=== PATIENT | male | born 1955 | race Caucasian/White ===

== ENCOUNTER → 2018-01-05 | Outpatient (CLI) | payer OTHER ==
[~2018-01-05] MED LIST: SERT50TA PO; SIMV40TA2 PO; XRL10 PO
[2018-01-05 14:09] LABS: BASO % 0.7 %; BASO ABS # 0.04 K/uL (0-0.2); EOS % 3.1 %; EOS ABS # 0.18 K/uL (0-0.5); HEMATOCRIT 44.4 % (42-52); HEMOGLOBIN 15.1 g/dL (14.0-18.0); LYMPH % 29.1 %; LYMPH ABS # 1.69 K/uL (1.2-3.4); MEAN CELL VOLUME 94.3 fL (80-100); MEAN CORPUSCULAR HEMOGLOBIN 32.1 pg (25-34); MEAN PLATELET VOLUME 9.6 fL (7.4-10.4); MONO % 6.7 %; MONO ABS # 0.39 K/uL (0.11-0.59); NEUT % 60.4 %; NEUT ABS # 3.51 K/uL (1.4-6.5); PLATELET COUNT 259 K/uL (130-400); RED CELL DISTRIBUTION WIDTH CV 12.9 % (11.5-14.5); RED CELL DISTRIBUTION WIDTH SD 44.8 fL (36.4-46.3); WHITE BLOOD COUNT 5.81 K/uL (4.8-10.8)
[2018-01-05 14:21] LABS: ALBUMIN 3.7 gm/dl (3.4-5.0); ALT/SGPT 39 U/L (12-78); BLOOD UREA NITROGEN 17 mg/dl (7-18); CARBON DIOXIDE 26 mmol/L (21-32); CHOLESTEROL 177 mg/dl (0-200); CREATININE 1.16 mg/dl (0.60-1.40); GLUCOSE 104 mg/dl (70-99); POTASSIUM 4.2 mmol/L (3.5-5.1); SODIUM 139 mmol/L (136-145)
[2018-01-05 14:37] LABS: ALKALINE PHOSPHATASE 68 U/L (45-117); AST/SGOT 29 U/L (15-37); LDL CHOLESTEROL CALCULATED 99 mg/dl; TOTAL PROTEIN 7.7 gm/dl (6.4-8.2)
== END | disposition home or self-care (01) ==
LOC: C.LABBC 11:52
PROVIDERS: ATTEND Family Medicine Adult Medicine
DX: K58.9 Irritable bowel syndrome, unspecified (principal); M19.90 Unspecified osteoarthritis, unspecified site; N40.0 Benign prostatic hyperplasia without lower urinary tract symptoms; R53.83 Other fatigue; E78.5 Hyperlipidemia, unspecified; D64.9 Anemia, unspecified

== ENCOUNTER → 2018-01-13 | Outpatient (CLI) | payer OTHER ==
--- NOTE | 2018-01-13 08:05 | DIAGNOSTIC IMAGING REPORT ---
SINUSES-MAXILLOFACIAL W/O CT DOSE: 241.10 mGycm HISTORY: Sinusitis ALLERGIC RHINITIS, DEVIATED NASAL SEPTUM TECHNIQUE: Multiaxial CT images of the paranasal sinuses were performed and reformatted in the coronal plane without the use of contrast. A dose lowering technique was utilized adhering to the principles of ALARA. COMPARISON: 09/05/2015 FINDINGS: Moderate mucosal thickening of the frontal sinuses. Significant thickening of the ethmoid air cells. Minimal mucosal thickening of the maxillary sinuses. Soft tissue occlusion right ostiomeatal unit. Moderate narrowing of the left ostiomeatal unit. Minimal mucosal thickening of the sphenoid air cells. Osseous structures are intact. There are no bony destructive or erosive changes. The mastoid air cells are clear. IMPRESSION: 1. Significant mucosal thickening of the ethmoid and to a lesser extent frontal sinuses. 2. Minimal mucosal thickening of the maxillary and sphenoid air cells. 3. Soft tissue occlusion right ostiomeatal unit, with moderate narrowing of the left ostiomeatal unit. The above report was generated using voice recognition software. It may contain grammatical, syntax or spelling errors. Electronically signed by: Pérez Cary M.D. 01/13/2018 8:03 AM Dictated Date/Time: 01/13/2018 8:01 AM
== END | disposition home or self-care (01) ==
LOC: C.CTS 07:34
PROVIDERS: ATTEND Family Medicine Adult Medicine
DX: J34.2 Deviated nasal septum (principal); J30.9 Allergic rhinitis, unspecified

== ENCOUNTER 2020-05-06 09:36 | Inpatient (IN) ==
--- NOTE | 2020-04-09 15:53 | PAT Medication Instructions ---
Medication Instructions Date of Service April 09, 2020 Home Medications fluticasone propionate 50 mcg/actuation nasal spray,suspension 2 sprays INTNAS DAILY PRN meloxicam 7.5 mg PO DAILY PRN montelukast 10 mg PO QAM sertraline 50 mg PO PM simvastatin 40 mg PO PM ASK your surgeon for instructions meloxicam 7.5 mg PO DAILY PRN DO NOT take the morning of surgery montelukast 10 mg PO QAM Take morning of surgery OTHERWISE NOTHING TO EAT OR DRINK AFTER MIDNIGHT: fluticasone propionate 50 mcg/actuation nasal spray,suspension 2 sprays INTNAS DAILY PRN (if needed) Take evening before surgery sertraline 50 mg PO PM simvastatin 40 mg PO PM Other Notes If you have any questions please call us at [phone] or [phone] or [phone] or [phone]
--- NOTE | 2020-04-11 12:11 | Anesthesiology Consultation ---
Date of Service April 11, 2020 Assessment & Plan (1) Encounter for pre-operative examination: Chart Review Chart Review: Pending: Refer to Additional Notes / Consult section (pending surgeon ordered PCP clearance scheduled 04/15) and Patient seen in Pre Admission Testing Awaiting surgeon ordered PCP clearance scheduled 04/15 Per PAT appt 04/11/20, traveled to [facility] >2 weeks ago- wears mask and social distances. Educated patient to follow up with surgeon's office regarding Covid testing. Educated on importance of self quarantining, social distancing and wearing mask in public both for the patient and household contacts. Teaching & Discussion Pre-Anesthesia Teaching/Discussion Notes: Instructed NPO after midnight before surgery,except medications with 15 cc of water. Medication instructions provided according to the PAT guidelines. History Surgery Operation Date: 05/07/20 07:45 Proposed Procedures p Right Total Hip Arthroplasty Anterior - Jonathan Mclean DO Height/Weight Height: 5 ft 10 in Weight: 86 kg Allergies Allergy/AdvReac Type Severity Reaction Status Date / Time cat dander Allergy Mild Sneezing Verified 04/04/20 08:05 dog dander Allergy Mild Sneezing Verified 04/04/20 08:05 indoor allergies Allergy Mild runny Uncoded 10/05/19 12:47 nose, sneezing, had allergy testing done Medications Home Medications Medication Instructions Recorded Confirmed Last Taken fluticasone propionate 50 2 sprays INTNAS DAILY PRN ml 10/01/19 04/04/20 Unknown mcg/actuation nasal spray,suspension meloxicam 7.5 mg PO DAILY PRN 04/04/20 04/04/20 Unknown montelukast 10 mg PO QAM 04/04/20 04/04/20 Unknown sertraline 50 mg PO PM 04/04/20 04/04/20 Unknown simvastatin 40 mg PO PM 04/04/20 04/04/20 Unknown Past Medical History Medical History Anxiety Hyperlipidemia Osteoarthritis Exercise / Class Metabolic Activity II 4-5 Yardwork/Stairs/Walk up hill (one flight of stairs - no chest pain or SOB ) Past Family History Family History Father Heart disease Hyperlipidemia Coronary heart disease Myocardial infarction Mother Irritable bowel Muscular dystrophy Son Muscular dystrophy Denies family history of Ovarian cancer Prostate cancer Breast cancer Colorectal cancer Past Surgical History Surgical History History of arthroscopy right History of colonoscopy History of endoscopic sinus surgery History of laminectomy lumbar History of left hip replacement History of tonsillectomy and adenoidectomy History of tooth extraction wisdom teeth Past Anesthesia History No Hx of Anesthesia Complications and No Family Hx of Anesthesia Complications History of PONV No Hx of PONV and No Hx of Motion Sickness Social History Smoking Status: Never smoker tobacco type: smokeless tobacco Do You Dip or Chew Tobacco: Yes (QUIT 2 WEEKS AGO USED TO BE A CAN PER 3 DAYS) Smoking End Date: 30 YRS AGO Hx Alcohol Use: Yes Alcohol type: beer alcohol intake frequency: 0-2 drinks per day Alcohol Intake Frequency Comment: 1 BEER PER DAY Hx Substance Use: No substance use type: does not use Review of Systems Occ reflux- eventually improved with OTC meds Patient denies chest pain, shortness of breath, dyspnea on exertion, cough, wheezing, palpitations. No hx of seizures, stroke, ME, apnea/snoring. No hx of blood clots or blood transfusions Physical Exam Vital Signs VITALS BP 143/80 P 66 TEMP 98.4 SP02 96% RESP 16 Constitutional no acute distress ENMT Mouth: no TMJ clicking Thyromental Distance: > or= 3.5 Finger Breadths Mallampati Class: II Denies any missing teet h Neck neck extension not limited Respiratory normal respiratory effort; no respiratory distress Auscultation: lungs clear to auscultation bilaterally; no wheezes Cardiovascular Rate/Rhythm: regular rate and regular rhythm Heart Sounds: no murmur Vessels: no carotid bruit Musculoskeletal Spine: + pain with cervical ROM (minimal) Neurologic moves all extremities Psychiatric Orientation: alert Testing Laboratory Results 04/11/20 11:25 04/11/20 11:25 PT 10.6 Seconds (9.0-12.0) 04/11/20 11:25 INR 1.0 (0.9-1.1) 04/11/20 11:25 APTT 33.2 Seconds (21.0-31.0) H 04/11/20 11:25 Hemoglobin A1c 5.7 % (4.5-5.6) H 04/11/20 11:25 Urine Color Yellow 04/11/20 11:25 Urine Appearance Clear (Clear) 04/11/20 11:25 Urine pH 5.0 (4.5-7.5) 04/11/20 11:25 Ur Specific Gary 1.024 (1.000-1.030) 04/11/20 11:25 Urine Protein Negative (Negative) 04/11/20 11:25 Urine Glucose (UA) Negative (Negative) 04/11/20 11:25 Urine Ketones Trace (Negative) H 04/11/20 11:25 Urine Nitrite Negative (Negative) 04/11/20 11:25 Ur Leukocyte Esterase Negative (Negative) 04/11/20 11:25 Urine WBC (Auto) 1-5 /hpf (0-5) 04/11/20 11:25 Urine RBC (Auto) 0-4 /hpf (0-4) 04/11/20 11:25 U Hyaline Cast (Auto) 0 /lpf (0-5) 04/11/20 11:25 U Epithel Cells (Auto) 0-5 /lpf (0-5) 04/11/20 11:25 Urine Bacteria (Auto) Negative (Negative) 04/11/20 11:25 Blood Type A Positive 04/11/20 11:25 Antibody Screen NEGATIVE 04/11/20 11:25 Electrocardiogram Date: 04/11/20 Findings: + SB @ (58) Chest X-Ray Date: 04/11/20 Findings: + NAD A 6 mm density in the right lung base is felt to represent either calcified granuloma or vascular summation.
--- NOTE | 2020-04-11 13:00 | XRay Report ---
XR chest Pre-admission PA/Lat CLINICAL HISTORY: Preoperative chest COMPARISON STUDY: 01/17/2013 FINDINGS: The cardiac and mediastinal contours are normal. There is no evidence of focal pulmonary co nsolidation. There is no evidence of failure. No pleural effusions are visualized.[A 6 mm density in the right lung base is felt to represent either calcified granuloma or vascular summation. IMPRESSION: No active disease in the chest. ACT 112: Negative or not required by law. Electronically signed by: Anders Uribe M.D. 04/11/2020 12:59 PM
[2020-04-11 14:30] LABS: Basophils # (auto) 0.06 K/uL (0-0.2); Basophils % (auto) 0.9 %; Eosinophils # (auto) 0.28 K/uL (0-0.5); Eosinophils % (auto) 4.3 %; Hematocrit (blood only) 39.8 % (42-52); Hemoglobin 13.5 g/dL (14.0-18.0); Immature Granulocytes # (auto) 0.01 K/uL (0.00-0.02); Immature Granulocytes % (auto) 0.2 %; Lymphocytes # (auto) 2.02 K/uL (1.2-3.4); Lymphocytes % (auto) 31.4 %; Mean Corpuscular Hemoglobin 32.1 pg (25-34); Mean Corpuscular Hgb Conc 33.9 g/dL (32-36); Mean Corpuscular Volume 94.8 fL (80-100); Mean Platelet Volume 9.9 fL (7.4-10.4); Monocytes # (auto) 0.51 K/uL (0.11-0.59); Monocytes % (auto) 7.9 %; Neutrophils # (auto) 3.56 K/uL (1.4-6.5); Neutrophils % (auto) 55.3 %; Platelet Count 245 K/uL (130-400); RDW Coefficient of Variation 13.3 % (11.5-14.5); White Blood Count 6.44 K/uL (4.8-10.8)
[2020-04-11 14:31] LABS: Partial Thromboplastin Ratio 1.2; Partial Thromboplastin Time 33.2 Seconds (21.0-31.0); Prothrombin Time 10.6 Seconds (9.0-12.0)
[2020-04-11 14:33] LABS: Estimated Average Glucose 117 mg/dl; Hemoglobin A1C 5.7 % (4.5-5.6)
[2020-04-11 14:35] LABS: Albumin Level 3.2 gm/dl (3.4-5.0); BUN Creatinine Ratio 15.2 (10-20); Calcium 8.9 mg/dl (8.5-10.1); Creatinine Clr Calc Pharmacy 76.8 ml/min; Est GFR (African American) 89.8; Est GFR (Non-African American) 77.5; Potassium 4.4 mmol/L (3.5-5.1)
[2020-04-11 14:36] LABS: Appearance Urine Clear (Clear); Bacteria Urine Automated Negative (Negative); Bilirubin Urine Negative (Negative); Blood Urine Trace (Negative); Cast Urine Automated 0 /lpf (0-5); Color Urine Yellow; Epithelial Cell Urine Auto 0-5 /lpf (0-5); Glucose Urine UA Negative (Negative); Ketones Urine Trace (Negative); Leukocyte Esterase Urine Negative (Negative); Nitrite Urine Negative (Negative); Protein Urine Negative (Negative); RBC Urine Automated 0-4 /hpf (0-4); Specific Gravity Urine 1.024 (1.000-1.030); Urobilinogen Urine Negative (Negative)
--- NOTE | 2020-04-11 19:05 | Electrocardiogram Report ---
Test Reason : Blood Pressure : / mmHG Vent. Rate : 058 BPM Atrial Rate : 058 BPM P-R Int : 158 ms QRS Dur : 090 ms QT Int : 398 ms P-R-T Axes : 058 061 053 degrees QTc Int : 390 ms Sinus bradycardia Otherwise normal ECG When compared with ECG of 17-JAN-2013 10:17, No significant change was found Confirmed by Sheldon Leonardo ([id number]) on 04/11/2020 7:05:18 PM Referred By: Jonathan Mclean Confirmed By:Stephen Leonardo
--- NOTE | 2020-05-04 21:03 | History & Physical Report ---
Date of Service May 06, 2020 Assessment & Plan (1) Degenerative joint disease of right hip: I have indicated the patient for right anterior total hip replacement. The risks, benefits and complications of surgery were explained to the patient which include but not limited to infection, acute blood loss, DVT/PE, injury to nerves, vessels, bone, soft tissue, arthrofibrosis, chronic pain, failure of the prosthesis, hip dislocation, leg length discrepancy, need for additional surgery, cardiac and pulmonary events and . The patient wished to proceed with surgery and informed consent was obtained at this time. We will plan for 81mg ASA BID post-operatively for DVT prophylaxis. Upon discharge the patient will be discharged home with home health services. Appropriate clearances by PCP were obtained. History of Present Illness Chief Complaint: Right hip pain/DJD Primary Care Provider: Kyle Loja MD The patient is a 64 year old male who presents with complaints of severe right hip pain and DJD. The patient has failed outpatient conservative treatments to this point which included NSAIDs, IA corticosteroid injection and a home exercise/walking program. The patient's pain and limited function have progressed to the point where they severely hinder their activities of daily living and they no longer tolerate exercise programs. They are requesting to proceed with total hip replacement surgery. Allergies Allergy/AdvReac Type Severity Reaction Status Date / Time cat dander Allergy Mild Sneezing Verified 05/06/20 10:39 dog dander Allergy Mild Sneezing Verified 05/06/20 10:39 indoor allergies Allergy Mild runny Uncoded 05/06/20 10:39 nose, sneezing, had allergy testing done Home Medications Home Medications Medication Instructions Recorded Confirmed Type fluticasone propionate 50 2 sprays INTNAS DAILY PRN ml 10/01/19 05/06/20 History mcg/actuation nasal spray,suspension meloxicam 7.5 mg PO DAILY PRN 04/04/20 05/06/20 History montelukast 10 mg PO QAM 04/04/20 05/06/20 History sertraline 50 mg PO PM 04/04/20 05/06/20 History simvastatin 40 mg PO PM 04/04/20 05/06/20 History sildenafil (pulm.hypertension) 20 See Rx Instructions PO ONCE #90 tab 04/15/20 05/06/20 Rx mg tablet amoxicillin 875 mg tablet 875 mg PO BID #14 tab 04/19/20 05/06/20 Rx Past Med/Surg History Medical History Anxiety Hyperlipidemia Osteoarthritis Surgical History History of arthroscopy right History of colonoscopy History of endoscopic sinus surgery (2019) History of laminectomy lumbar History of left hip replacement History of tonsillectomy and adenoidectomy History of tooth extraction wisdom teeth Family History Father Heart disease Hyperlipidemia Coronary heart disease Myocardial infarction Mother Irritable bowel Muscular dystrophy Son Muscular dystrophy Denies family history of Ovarian cancer Prostate cancer Breast cancer Colorectal cancer Social History Smoking Status: Never smoker Age Started Using Tobacco: 20; Age Quit Using Tobacco: 27; packs per day: 0.5; Smoking End Date: 30 YRS AGO; Second Hand Exposure: No; Do You Dip or Chew Tobacco: Yes (QUIT 2 WEEKS AGO USED TO BE A CAN PER 3 DAYS); Tobacco Cessation Education Requested by Patient: No Hx Alcohol Use: Yes Alcohol type: beer Hx Substance Use: No Preferred Language: Czech Communication Ability: Effective 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 Beliefs That Will Affect Care: None marital status: Current Living Situation: Spouse current occupational status: employed Other Information That Helps Us Care for You: No Feels Safe at Home: Yes Safety Concerns: Feels Safe At This Time Dental Care, Regularly: Yes Physical Activity Frequency: 3-4 Times per Week Seatbelt Use: always Sunscreen Use: Yes Review of Systems Review of Systems: All systems reviewed & are unremarkable except as noted in HPI & below Constitutional: as per Subjective / HPI Physical Exam Physical Exam: RLE NVSI +EHL/FHL/TA/GS SILT grossly, +2 DP pulse, compartments soft NT, limited painful ROM of the hip, antalgic gait Constitutional: WD/WN, vitals as above Eyes: PERRL, conjunctivae normal, anicteric sclerae ENMT: external ear and nose normal, oropharynx normal Neck: trachea midline, no thyromegaly Respiratory: normal respiratory effort, lungs clear to auscultation Cardiovascular: RRR, no murmur, no edema Gastrointestinal (Abdomen): normal bowel sounds, soft, nontender, no hepatosplenomegaly Musculoskeletal: no cyanosis or clubbing, extremities motor strength 5/5 Skin: no rashes, warm and dry Neurologic: patellar DTR's 2+ bilat, sensation intact Psychiatric: A+Ox3, euthymic affect Lymphatic: no cervical or axillary lymphadenopathy Results & Data Results & Data ([facility]) Diagnostic Findings Multiple views of the hip demonstrates severe DJD with complete loss of the joint space. +osteophytes, +sclerosis, +subchondral cysts.
[~2020-05-06 09:36] MED LIST changes: +ACETAMINOPHEN 500 MG TAB PO SCH; +BUPIVACAINE 0.5 % 5 MG/1 ML PF 10ML VIAL ONE; +CEFAZOLIN 2000MG 2,000 MG/15 ML SYR IV SCH; +CeleBREX 200 MG CAP PO SCH; +FAMOTIDINE 20 MG TAB PO SCH; +GABAPENTIN 600 MG DOSE PO SCH; +LR 500ML BOLUS, THEN 15ML/HR IV SCH; +METOCLOPRAMIDE HCL 10 MG TABLET PO SCH; +ROPIVACAINE 0.5% HCL/PF 150 MG, BUPIVACAINE 0.5% MPF 30 ML, EPINEPHrine 30MG/30ML (OR U... INSTIL SCH; -SERT50TA PO; -SIMV40TA2 PO; +TRANEXAMIC ACID 1,000 MG **IV Intra-op IV SCH; +TRANEXAMIC ACID 1,000 MG **IV Pre-op IV SCH; -XRL10 PO; +dexAMETHasone 4 MG TAB PO SCH
[2020-05-06] MEDS ORDERED: MIDAZOLAM HCL 1 MG/ML 2ML VIAL ONE (11:32)
[2020-05-06] MEDS ORDERED: PROPOFOL IV EMULSION 10 MG/ML 20 ML VIAL IV ONE ×2 (11:55→13:54)
--- NOTE | 2020-05-06 11:56 | History & Physical Bridge Note ---
Date of Service May 06, 2020 History & Physical Bridge Note I have examined the patient, reviewed the History & Physical and in the interval since the performance of the History & Physical I have noted the following changes of clinical significance: no changes noted
[2020-05-06] MEDS ORDERED: ORTHO JOINT ANESTHETIC ONE (12:01)
[2020-05-06] MEDS ORDERED: BACITRACIN INJ 50,000 UNIT VIAL ONE (12:01)
[2020-05-06] MEDS ORDERED: fentaNYL citrate 100 MCG/2 ML VIAL IV PRN (12:19)
[2020-05-06] MEDS ORDERED: ONDANSETRON INJ 2 MG/ML 2 ML VIAL IV PRN ×2 (12:19→15:41)
[2020-05-06] MEDS ORDERED: ATROPINE SULFATE 0.1 MG/ML 10ML SYR IV PRN (12:19)
[2020-05-06] MEDS ORDERED: METOCLOPRAMIDE HCL INJ 5 MG/ML 2 ML VIAL IV PRN ×2 (12:19→15:41)
[2020-05-06] MEDS ORDERED: PROMETHAZINE HCL 12.5 MG in SODIUM CHLORIDE 0.9% 50 ML IV PRN (12:19)
[2020-05-06] MEDS ORDERED: ePHEDrine sulfate 50 MG/ML AMP IV PRN (12:19)
[2020-05-06] MEDS ORDERED: HYDROmorphone INJ 2 MG/ML SYR/VIAL IV PRN (12:19)
[2020-05-06] MEDS ORDERED: ePHEDrine sulfate 50 MG/ML SYR ONE (12:51)
--- NOTE | 2020-05-06 14:08 | Post Operative Brief Note ---
Immediate Post Op Note v1 Date of Surgery May 06, 2020 Pre & Post Diagnosis Operation Date: 05/06/20 11:40 Pre-Op Diagnosis: RIGHT HIP OSTEOARTHRITIS Post-Op Diagnosis: RIGHT HIP OSTEOARTHRITIS I identified the patient and participated in the time-out.: Yes Procedure Operation Date: 05/06/20 11:40 Actual Procedures p Right Anterior Total Hip Arthroplasty(Right) - Jonathan Mclean DO Surgeon Jonathan Mclean DO Asphalt Machine Operator Gary Salmon Estimated Blood Loss 140 Findings Consistent with Post-Op Diagnosis Fluids 1500 cc LR Specimens Femoral head Anesthesia Type Spinal MAC Complications none Disposition Disposition: Recovery Room Overlapping Procedure I was present for: the critical portions of procedure. I was immediately available: during the entire case. Back up surgeon: was not required during procedure.
--- NOTE | 2020-05-06 14:10 | Operative Report ---
Post Operative Report Pre & Post Diagnosis Operation Date: 05/06/20 11:40 Pre-Op Diagnosis: RIGHT HIP OSTEOARTHRITIS Post-Op Diagnosis: RIGHT HIP OSTEOARTHRITIS I identified the patient and participated in the time-out.: Yes Procedure Operation Date: 05/06/20 11:40 Actual Procedures p Right Anterior Total Hip Arthroplasty(Right) - Jonathan Mclean DO Surgeon Jonathan Mclean DO Supervisor Engine Repair Gary Salmon Estimated Blood Loss 140 Findings Consistent with Post-Op Diagnosis Fluids 1500 cc LR Specimens Femoral head Anesthesia Type Spinal MAC Complications none Disposition Disposition: Recovery Room Indications The patient is a 64-year-old male who presents with severe progressive right hip DJD who has failed outpatient conservative treatments. I indicated the patient for a total hip replacement and the risks and benefits were explained in detail which included but not limited to infection, bleeding, blood clot, damage to surrounding bone, nerves, vessels, soft tissue, hip dislocation, failure of the prosthesis, leg length discrepancy, need for additional surgery and . The patient agreed to proceed with replacement of the hip and informed consent was obtained. Appropriate clearances were obtained. Description of Procedure COMPONENTS USED: [employer] hip system: Acetabulum size 54, femur size 8 high offset, femoral head 36+0, liner 5436, acetabular screw 25 mm x 1. DESCRIPTION OF PROCEDURE: Following satisfactory spinal anesthesia, the patient was placed supine on the OR table. The left leg was placed in the well leg reddy and the right leg in the traction device. The right leg was prepared with ChloraPrep and draped sterilely. A surgical timeout was performed, patient identified and site erica verified. Appropriate antibiotics were given. A standard anterior approach in the interval between the sartorius and tensor muscles was performed. Dissection was carried down through subcutaneous tissues. Electrocautery was utilized for hemostasis. Circumflex femoral vessels were identified, tied and ligated. The anterior capsular fat pad was removed and the capsulotomy was performed revealing the arthritic femoral neck and head. A femoral neck cut was made with reciprocating saw and the bone fragments removed. The acetabular self-retraining retractor was placed. Acetabular reaming was completed under fluoroscopic guidance, a 54 shell was impacted into an anatomic position and secured with a dome screw. Local anesthetic was placed and following irrigation, the polyethylene liner was placed. The femur was placed into position of external rotation, extension and adduction. Femoral canal was prepared up to the size 8 high offset. Trial reduction with a 36+0 neck length head showed good soft tissue tension, leg lengths restored, and good fit and fill of the proximal canal using fluoroscopic landmarks. The hip was dislocated. The trial component was removed. The final implant was placed. The hip was irrigated with sterile saline solution and reduced. A Betadine soak was performed. After 3 minutes, the hip was once more irrigated with copious sterile saline solution with bacitracin. Michelle-incisional soft tissue was injected utilizing [place] [employer] which includes a combination of Ropivicaine 0.5% 150mg, Bupivicaine 0.5%/Epinephrine 1:200,000 30ml, Toradol 30mg, Dexamethasone 4mg, Ketamine 10mg, Clonidine 100mcg and NSS 30ml solution. The capsule was then closed with 1-0 Vicryl interrupted figure of eight sutures. The fascia was closed with a running suture of #1 Vicryl, the subcutaneous tissues with 2-0 Vicryl and the skin with a running subcuticular stitch of 3-0 V-Loc. Dermabond prineo and a dry dressing were applied. The patient tolerated the procedure well and was transported to PACU in stable condition. Due to the complex nature of the procedure, the entire surgery was performed with the operational assistance of Gary Salmon PA-C. The equal opportunity assistant, under direct supervision, was involved in the actual performance of all aspects of the surgical procedure including patient positioning, hemostasis, tissue re traction, instrument management and wound closure. I attest to the content of the Intraoperative Record and any orders documented therein. Any exceptions are noted below.
--- NOTE | 2020-05-06 14:22 | Fluoroscopy Report ---
INTRAOPERATIVE RADIOGRAPHS CLINICAL HISTORY: Right hip arthroplasty. Fluoroscopy time: 32 seconds. FINDINGS: 2 spot fluoroscopic views of the pelvis are presented. A right hip arthroplasty is in near- anatomic alignment. A left hip arthroplasty is again noted. There is no evidence of acute fracture on the provided images. IMPRESSION: Intraoperative images from right hip arthroplasty procedure as above. Electronically signed by: Daren Samayoa M.D. 05/06/2020 2:21 PM
--- NOTE | 2020-05-06 15:00 | Anesthesiology Progress Note ---
Date of Service May 06, 2020 Anesthesia Post Procedure Vital Signs Vital Signs: Temp Pulse Pulse Resp BP Pulse Ox 05/06/20 14:50 36.2 C L 68 13 118/63 97 05/06/20 14:40 68 15 124/68 94 05/06/20 14:30 75 13 114/62 98 05/06/20 14:23 36.4 C L 83 16 110/68 100 05/06/20 11:30 64 15 130/83 97 05/06/20 10:46 37.2 C 62 16 140/80 95 Transfer of Care Handoff Completed per policy Notes Mental Status: alert / awake / arousable and participated in evaluation Patient Amnestic to Procedure: Yes Nausea / Vomiting: adequately controlled Pain: adequately controlled Airway Patency, RR, SpO2: stable & adequate BP & HR: stable & adequate Hydration State: stable & adequate Neuraxial Anesthesia: was administered and sensory block is resolving Anesthetic Complications: no major complications apparent
--- NOTE | 2020-05-06 15:10 | XRay Report ---
XR hip 1V RT w pelvis CLINICAL HISTORY: Postop right hip arthroplasty. COMPARISON: March 2013 DISCUSSION: A total left hip arthroplasty is again evident. Now evident is a total right hip arthropl asty. The acetabular and femoral components appear well seated. There is no evidence of dislocation. IMPRESSION: Postsurgical changes of a total right hip arthroplasty ACT 112: Negative or not required by law. Electronically signed by: Anders Uribe M.D. 05/06/2020 3:09 PM
[2020-05-06] MEDS ORDERED: MAGNESIUM HYDROXIDE SUSP 30 ML UDC PO PRN (15:41)
[2020-05-06] MEDS ORDERED: HYDROmorphone INJ 0.5 MG/0.5 ML SYR IV PRN (15:41)
[2020-05-06] MEDS ORDERED: bisacodyL 10 MG SUPP PR PRN (15:41)
[2020-05-06] MEDS ORDERED: NALOXONE HCL 0.4 MG/1 ML VIAL/CARP IV PRN (15:41)
[2020-05-06] MEDS: KETOROLAC TROMETHAMINE 15 MG/ML VIAL IV SCH ×2 (17:14→23:36)
[2020-05-06] MEDS: SODIUM CHLORIDE 0.9% 1000ML 1,000 ML IV SCH (17:14)
[2020-05-06] MEDS: OXYCODONE HCL IR 5 MG TAB (IMMEDIATE RELEASE) PO PRN ×2 (17:58→23:13)
--- NOTE | 2020-05-06 19:19 | Orthopedic Progress Note ---
Date of Service May 06, 2020 Assessment & Plan (1) Degenerative joint disease of right hip: s/p Right anterior SHALA -ancef x 24 -DVT ppx: SCDs, TEDs, 81mg ASA BID -WBAT RLE -PT/OT -PO XR demonstrates a well aligned well fixed prothesis without fracture/dislocation -am labs -DC planning Admission and Anticipated Discharge Date Admission Date: May 06, 2020 Subjective Post Operative Progress Note Patient seen sitting up in bed, comfortable, denies complaints, pain well controlled, no acute issues. Review of Systems Review of Systems: All systems reviewed & are unremarkable except as noted in HPI & below Constitutional: as per Subjective / HPI Physical Exam Physical Exam: RLE NVSI +EHL/FHL/TA/GS SILT grossly, +2 DP pulse, compartments soft NT, dressing cdi. Constitutional: WD/WN, vitals as above Results & Data ([place]) Vital Signs (Past 12 Hours) Vital Signs Temp Pulse Pulse Pulse Resp BP Pulse Ox 05/06/20 18:43 69 18 149/78 H 96 05/06/20 18:00 36.4 C L 18 130/80 98 05/06/20 16:38 36.3 C L 74 18 124/73 98 05/06/20 16:10 86 18 122/68 98 05/06/20 15:35 36.4 C L 74 16 115/67 98 05/06/20 15:20 66 12 115/67 96 05/06/20 15:05 84 19 121/67 95 05/06/20 14:50 36.2 C L 68 13 118/63 97 05/06/20 14:40 68 15 124/68 94 05/06/20 14:30 75 13 114/62 98 05/06/20 14:23 36.4 C L 83 16 110/68 100 05/06/20 11:30 64 15 130/83 97 05/06/20 10:46 37.2 C 62 16 140/80 95
[2020-05-06] MEDS: DOCUSATE SODIUM 100 MG CAP PO SCH (20:14)
[2020-05-06] MEDS: CEFAZOLIN 2000MG 2,000 MG/15 ML SYR IV SCH (20:16)
[2020-05-06] MEDS ORDERED: SERTRALINE HCL 50 MG TABLET PO SCH (21:00)
[2020-05-06] MEDS ORDERED: SENNA 8.6 MG TAB PO SCH (21:00)
[2020-05-06] MEDS ORDERED: SIMVASTATIN 40 MG TAB PO SCH (21:00)
[2020-05-06] MEDS ORDERED: CeleBREX 200 MG CAP PO SCH (21:00)
[2020-05-06] MEDS: ACETAMINOPHEN 500 MG TAB PO SCH (22:06)
[2020-05-07 02:36] VITALS: TEMP 97.5; O2SAT 95
[2020-05-07] MEDS: SODIUM CHLORIDE 0.9% 1000ML 1,000 ML IV SCH (02:59)
[2020-05-07] MEDS: CEFAZOLIN 2000MG 2,000 MG/15 ML SYR IV SCH (03:42)
[2020-05-07 05:34] LABS: Basophils # (auto) 0.01 K/uL (0-0.2); Basophils % (auto) 0.1 %; Hematocrit (blood only) 36.5 % (42-52); Hemoglobin 11.9 g/dL (14.0-18.0); Immature Granulocytes # (auto) 0.02 K/uL (0.00-0.02); Immature Granulocytes % (auto) 0.2 %; Lymphocytes # (auto) 0.79 K/uL (1.2-3.4); Lymphocytes % (auto) 6.6 %; Mean Corpuscular Hgb Conc 32.6 g/dL (32-36); Mean Corpuscular Volume 95.1 fL (80-100); Mean Platelet Volume 9.4 fL (7.4-10.4); Monocytes # (auto) 0.95 K/uL (0.11-0.59); Neutrophils # (auto) 10.14 K/uL (1.4-6.5); Neutrophils % (auto) 85.1 %; Platelet Count 236 K/uL (130-400); RDW Coefficient of Variation 12.9 % (11.5-14.5); Red Blood Count 3.84 M/uL (4.7-6.1); White Blood Count 11.91 K/uL (4.8-10.8)
[2020-05-07 06:02] LABS: BUN Creatinine Ratio 15.7 (10-20); Calcium 7.9 mg/dl (8.5-10.1); Creatinine Clr Calc Pharmacy 79.9 ml/min; Est GFR (African American) 94.2; Est GFR (Non-African American) 81.3; Potassium 4.2 mmol/L (3.5-5.1)
[2020-05-07] MEDS: KETOROLAC TROMETHAMINE 15 MG/ML VIAL IV SCH ×2 (06:09→13:13)
[2020-05-07] MEDS: ACETAMINOPHEN 500 MG TAB PO SCH ×2 (06:09→13:14)
[2020-05-07 07:16] VITALS: BP 139/79; PULSE 66
--- NOTE | 2020-05-07 07:43 | Orthopedic Progress Note ---
Date of Service May 07, 2020 Assessment & Plan (1) Degenerative joint disease of right hip: s/p Right anterior SHALA POD#1 -ancef x 24 -DVT ppx: SCDs, TEDs, 81mg ASA BID -WBAT RLE -PT/OT -PO XR demonstrates a well aligned well fixed prothesis without fracture/dislocation -am labs - as above, hgb 11.9 -DC planning - DC home with Admission and Anticipated Discharge Date Admission Date: May 06, 2020 Subjective Post Operative Progress Note Patient seen sitting up in bed, comfortable, denies complaints, pain well controlled, no acute issues. Denies F/C/N/V/SOB/CP. Review of Systems Review of Systems: All systems reviewed & are unremarkable except as noted in HPI & below Constitutional: as per Subjective / HPI Physical Exam Physical Exam: RLE NVSI +EHL/FHL/TA/GS SILT grossly, +2 DP pulse, compartments soft NT, dressing cdi. Constitutional: WD/WN, vitals as above Results & Data (MN) Vital Signs (Past 12 Hours) Vital Signs Temp Pulse Resp BP Pulse Ox 05/07/20 07:16 36.4 C L 66 16 139/79 95 05/07/20 02:36 36.4 C L 76 16 129/79 95 05/06/20 23:57 36.5 C 35 L 16 137/76 94 05/06/20 19:59 36.5 C 80 16 144/78 H 95 Laboratory Results 05/07/20 05/07/20 Range/Units 04:56 04:56 WBC 11.91 H (4.8-10.8) K/uL RBC 3.84 L (4.7-6.1) M/uL Hgb 11.9 L (14.0-18.0) g/dL Hct 36.5 L (42-52) % MCV 95.1 (80-100) fL MCH 31.0 (25-34) pg MCHC 32.6 (32-36) g/dL RDW Std Deviation 45.0 (36.4-46.3) fL RDW Coeff of Jacquie 12.9 (11.5-14.5) % Plt Count 236 (130-400) K/uL MPV 9.4 (7.4-10.4) fL Immature Gran % (Auto) 0.2 % Neut % (Auto) 85.1 % Lymph % (Auto) 6.6 % Beckham % (Auto) 8.0 % Eos % (Auto) 0.0 % Baso % (Auto) 0.1 % Neut # (Auto) 10.14 H (1.4-6.5) K/uL Lymph # (Auto) 0.79 L (1.2-3.4) K/uL Beckham # (Auto) 0.95 H (0.11-0.59) K/uL Eos # (Auto) 0.00 (0-0.5) K/uL Baso # (Auto) 0.01 (0-0.2) K/uL Immature Gran # (Auto) 0.02 (0.00-0.02) K/uL Sodium 141 (136-145) mmol/L Potassium 4.2 (3.5-5.1) mmol/L Chloride 111 H (98-107) mmol/L Carbon Dioxide 23 (21-32) mmol/L Anion Gap 7.0 (3-11) BUN 16 (7-18) mg/dl Creatinine 0.99 (0.6-1.4) mg/dl Est Cr Clr Drug Dosing 79.9 ml/min Est GFR ( Amer) 94.2 Est GFR (Non-Af Amer) 81.3 BUN/Creatinine Ratio 15.7 (10-20) Glucose 150 H (70-99) mg/dl Calcium 7.9 L (8.5-10.1) mg/dl
[2020-05-07] MEDS: DOCUSATE SODIUM 100 MG CAP PO SCH (08:26)
[2020-05-07] MEDS ORDERED: MULTIVITAMIN TAB PO SCH (09:00)
[2020-05-07] MEDS ORDERED: ASPIRIN 81 MG ECTAB PO SCH (09:00)
[2020-05-07] MEDS ORDERED: MONTELUKAST SODIUM 10 MG TABLET PO SCH (09:00)
--- NOTE | 2020-05-07 20:54 | Discharge Summary ---
Date of Service May 07, 2020 Admission HPI Per Admitting Provider The patient is a 64 year old male who presents with complaints of severe right hip pain and DJD. The patient has failed outpatient conservative treatments to this point which included NSAIDs, IA corticosteroid injection and a home exercise/walking program. The patient's pain and limited function have progressed to the point where they severely hinder their activities of daily living and they no longer tolerate exercise programs. They are requesting to proceed with total hip replacement surgery. Principal Diagnosis Right anterior total hip replacement -Right hip DJD Discharge Exam RLE NVSI +EHL/FHL/TA/GS SILT grossly, +2 DP pulse, compartments soft NT, dressing cdi. Constitutional WD/WN, vitals as above Discharge Data Allergies Allergy/AdvReac Type Severity Reaction Status Date / Time cat dander Allergy Mild Sneezing Verified 05/06/20 10:39 dog dander Allergy Mild Sneezing Verified 05/06/20 10:39 indoor allergies Allergy Mild runny Uncoded 05/06/20 10:39 nose, sneezing, had allergy testing done Consultations 05/07/20 08:00 Consult Case Management - Discharge Planning Routine Procedures Performed Operation Date: 05/06/20 11:40 Actual Procedures p Right Anterior Total Hip Arthroplasty(Right) - Jonathan Mclean DO Ordered Studies 05/06/20 11:40 FL fluoroscopy <1hr Routine FL hip RT 1V Routine Hospital Course (1) Degenerative joint disease of right hip: The patient is a 64 -year-old male who presents with long standing history of severe right hip DJD and failed outpatient conservative treatments. The patient's symptoms have progressed to the point where it has been difficult to perform even normal activities of daily living. I indicated the patient for a right anterior total hip arthroplasty, the risks, benefits and complications of the procedure include but not limited to infection, bleeding, damage to bone, nerves, vessels, surrounding soft tissue, may develop blood clots, loss of function, leg length discrepancy, dislocation, failure of the components, loosening of the components, the need for additional surgery and . The patient wished to proceed with surgery at this time and informed consent was obtained. Hospital Course: On 05/06/20 the patient was taken to the operating room, adequate anesthesia administered and underwent a right anterior total hip arthroplasty. The patient tolerated the procedure well and was taken to the PACU in stable condition. Post-operatively the patient was started on a DVT ppx medication and given appropriate IV antibiotics. Consults were placed to physical therapy, occupational therapy and case management. On POD#1, the patient did well overnight and their pain was well controlled. Labs were drawn and the Hgb was 11.9. The patient progressed well with PT. Dressings were changed at this time and the incision was clean, dry and intact. The patients hospital stay was relatively uneventful and they were deemed stable by the orthopedic team and consultants to be discharged home with HH on 05/07/20. Discharge Instructions: Upon discharge the patient may weight bear as tolerates through their operative extremity. They were instructed to keep the incision clean and dry at all times. The patient may shower but should not submerge the incision, avoid bathi ng, pools and hot tubes. The patient was given a script for pain medication and should take as instructed. The patient was given a script for DVT ppx 81mg ASA BID and should take as directed. The patient was instructed to not drive or travel for long distances until cleared to do so. If the patient develops any symptoms of fevers, chills, nausea, vomiting, increased redness, swelling, pain or drainage from the surgical site, they should notify the office and/or proceed to the nearest emergency room. The patient should follow up in 10-14 days after surgery for their routine post-operative follow-up appointment and should call the office to confirm the date and time. s/p Right anterior SHALA POD#1 -ancef x 24 -DVT ppx: SCDs, TEDs, 81mg ASA BID -WBAT RLE -PT/OT -PO XR demonstrates a well aligned well fixed prothesis without fracture/dislocation -am labs - as above, hgb 11.9 -DC planning - DC home with Total Time Total Time Spent Total Time Spent (In Minutes): 30 Discharge Plan Discharge Items Patient Disposition: Home - Home Health Services Reason For Visit: RIGHT HIP OSTEOARTHRITIS Discharge Diagnosis: Right anterior total hip replacement Condition on Discharge: Good Activity: Per Instructions section Lifting: Wait until after follow-up appointment Bathing: Keep incision dry Bathing Comment: No bathing, pools or hot tubs Sexual Activity: Wait until after follow-up appointment Exercise/Sports: Wait until after follow-up appointment Driving/Machine Use: No driving Weightbearing: Full weightbearing Non-emergency contact: Primary Care Provider and Surgeon Call non-emergency contact if: you have any medication questions, your symptoms worsen, your pain is not controlled, your pain is worsening, your pain is unusual for you, your pain is concerning for you, you have a fever, your temperature is above 101, your wound has increased redness, your wound has increased drainage and your wound pain has increased Follow-up/Referrals: Kyle Loja III, MD [Primary Care Provider] - Diet: Regular Addtl Attending Provider Instructions: ACTIVITY RECOMMENDATIONS: SELF CARE INSTRUCTIONS AFTER TOTAL HIP REPLACEMENT : Direct Anterior Approach Until the incision and soft tissues around your hip have healed, there is a possibility that the hip prosthesis could dislocate. A. Hip flexion ( Up & Down out of chair or steps ) may be difficult. This is normal. B. Numbness in front of the thigh is also normal for a few weeks. C. Use hand rails when walking on stairs. D. Wear low heeled shoes with non-slip soles. E. Be sure that your floors are free of things that could trip you - throw rugs, electrical cords, small objects. Avoid wet and waxed floors, especially with crutches and canes. F. Try to walk several times a day with rest periods between. G. Continue with all the exercises taught to you in the hospital. Again, make walking a part of your daily routine. SPECIAL CARE INSTRUCTIONS: VERY IMPORTANT TO READ AND REVIEW A. You may still be at risk for phlebitis and blood clots. 1. Wear surgical stockings (DANIEL hose) for 2 weeks after surgery to improve circulation and reduce swelling. 2. Take Aspirin 81mg twice daily for 4 weeks or as directed by your doctor. This is your blood thinner. 3. High risk patients may be prescribed a stronger blood thinner if necessary. 4. If you are on Coumadin normally, your family doctor/cottage supervisor should monitor your blood work. Expect a phone call the day of or the day after bloodwork is drawn to adjust your dosage. B. You must take antibiotics before having dental work, bladder, bowel and other surgery. Your doctor will provide you with a permanent card to carry describing precautions. C. Call [facility] if you have a fever, redness or swelling around the incision, cloudy drainage from incision, or sudden increase in pain in your hip, not relieved by your regular pain medication. D. Please call the office at if you have any concerns or questions about your operation or recovery. * YOU MAY SHOWER, NO TUB BATHS UNTIL CLEARED BY YOUR DOCTOR. - Keep an extra close eye on the top portion of your incision. Be sure to keep clean & dry. * WEAR DANIEL HOSE 20 HOURS PER DAY FOR 2 WEEKS. * YOU MAY PROGRESS FROM A WALKER, TO A CANE, TO INDEPENDENT AT YOUR OWN PACE. * MOST PATIENTS WILL HAVE HOME NURSING FOR THERAPY. IF YOU DECIDE TO DO OUTPATIENT PHYSICAL THERAPY, PLEASE SCHEDULE THIS 3 TIMES PER WEEK. * DERMABOND Prineo- This is a mesh tape dressing that is covered with glue. It should remain in place until the incision is properly healed, usually 10-14 days. This dressing is designed to naturally slough off. You may trim the excess mesh tape as it peels off. Incision may be briefly wet in a shower. Dry immediately by blotting with a clean, dry towel. Do not bath or swim until instructed by your doctor. Do not scratch, rub, or pick at the dressing. Do not apply any topical ointments or lotions until dressing is completely removed and/or instructed by your doctor. There may be a small piece of suture material at one end of your incision. Do not pull or trim this. If it is bothersome or catching on clothing, you may cover it with a band-aid. FOLLOW UP VISIT: If appointment is not already scheduled: Please call [facility] to make a follow-up appointment for 2 weeks after your surgery at . Pending Studies at Discharge: No Stand-Alone Forms: My [facility], Opioid Pain Management, Smoking Cessation Medications and DC Order Prescriptions: New celecoxib [Celebrex] 200 mg Capsule 200 mg PO BID PRN (Reason: pain/inflammation) Qty: 28 RF: 0 aspirin 81 mg Tablet,Delayed Release (Dr/Ec) 81 mg PO BID Qty: 56 RF: 0 acetaminophen 500 mg Tablet 1,000 mg PO Q8 PRN (Reason: pain/fevers) Qty: 90 RF: 0 oxycodone 5 mg Tablet 5 mg PO Q6H MDD 4 PRN (Reason: pain) Qty: 30 RF: 0 sennosides [Senokot] 8.6 mg Tablet 17.2 mg PO HS PRN (Reason: constipation) Qty: 28 RF: 0 Continued sildenafil (pulm.hypertension) 20 mg tablet See Rx Instructions PO ONCE Qty: 90 RF: 5 fluticasone propionate 50 mcg/actuation spray,suspension 2 sprays INTNAS DAILY PRN (Reason: Allergy Symptoms) RF: 0 simvastatin 40 mg tablet 40 mg PO PM RF: 0 montelukast 10 mg Tablet 10 mg PO QAM RF: 0 Changed sertraline 50 mg tablet 50 mg PO PM PRN (Reason: patient's home med) Qty: 0 RF: 0 Discontinued amoxicillin 875 mg tablet 875 mg PO BID Qty: 14 RF: 0 meloxicam 7.5 mg tablet 7.5 mg PO DAILY PRN (Reason: Pain) RF: 0 Discharge Orders: Discharge Order (Routine); Ordered 05/07/20 Ordered By: Jonathan Langley/Other Patient Handouts: DVT Post Op Prevention Admission Data Admit Date/Time: 05/06/20 14:40 Attending Provider: Jonathan Mclean Admit Provider: Jonathan Mclean Primary Care Provider: Kyle Loja III Other Providers: [facility],Home [facility] Other Interventions: Discharge Summary Assessment (RN) Last Done: 05/07/20 13:18 DC Date/Time DO NOT enter until pt leaves facility: 05/07/20 13:43
== END 2020-05-07 13:43 | disposition home health service (06) | DRG 470 ==
LOC: ASU 09:36 → 3E 14:40

== ENCOUNTER 2022-06-26 08:21 | Inpatient (IN) ==
--- NOTE | 2022-06-04 10:14 | PAT Medication Instructions ---
Medication Instructions Date of Service June 04, 2022 Home Medications Medication Instructions Recorded albuterol sulfate 90 mcg/actuation 2 puff inhalation Q6H PRN 10/13/21 aerosol inhaler (Proventil HFA) shortness of breath or wheezing #18 grams budesonide-formoterol HFA 80 2 puff inhalation BID #10.2 grams 10/13/21 mcg-4.5 mcg/actuation aerosol inhaler (Symbicort) fluticasone propionate 50 2 spray intranasal DAILY #16 grams 10/13/21 mcg/actuation nasal spray,suspension montelukast 10 mg tablet 10 mg PO QAM #90 tabs 10/13/21 sertraline 50 mg tablet 50 mg PO PM #90 tabs 10/13/21 simvastatin 40 mg tablet 40 mg PO PM #90 tabs 10/13/21 albuterol sulfate 90 mcg/actuation aerosol inhaler (Proventil HFA) 2 puff inhalation Q6H PRN budesonide-formoterol HFA 80 mcg-4.5 mcg/actuation aerosol inhaler (Symbicort) 2 puff inhalation BID fluticasone propionate 50 mcg/actuation nasal spray,suspension 2 spray intranasal DAILY montelukast 10 mg tablet 10 mg PO QAM sertraline 50 mg tablet 50 mg PO PM simvastatin 40 mg tablet 40 mg PO PM meloxicam 7.5 mg tablet 7.5 mg PO DAILY PRN ASK your surgeon for instructions meloxicam 7.5 mg tablet 7.5 mg PO DAILY PRN DO NOT take the morning of surgery montelukast 10 mg tablet 10 mg PO QAM Take morning of surgery With a small sip of water, OTHERWISE NOTHING TO EAT OR DRINK AFTER MIDNIGHT: albuterol sulfate 90 mcg/actuation aerosol inhaler (Proventil HFA) 2 puff inhalation Q6H PRN(use if needed; please bring with you to hospital day of surgery if possible) budesonide-formoterol HFA 80 mcg-4.5 mcg/actuation aerosol inhaler (Symbicort) 2 puff inhalation BID fluticasone propionate 50 mcg/actuation nasal spray,suspension 2 spray intranasal DAILY Take evening before surgery albuterol sulfate 90 mcg/actuation aerosol inhaler (Proventil HFA) 2 puff inhalation Q6H PRN(if needed) budesonide-formoterol HFA 80 mcg-4.5 mcg/actuation aerosol inhaler (Symbicort) 2 puff inhalation BID sertraline 50 mg tablet 50 mg PO PM simvastatin 40 mg tablet 40 mg PO PM Other Notes If you have any questions please call us at [phone] or [phone] or [phone] or [phone]
--- NOTE | 2022-06-15 11:24 | Anesthesiology Consultation ---
Date of Service June 15, 2022 Assessment & Plan (1) Encounter for pre-operative examination: - Preop testing: Do to lab error, preop UA (culture if indicated) not done. PCP will have done at preop evaluation appt (06/16 [facility]). Awaiting surgeon-ordered P CP preop evaluation and preop UA ([facility]; scheduled 06/16). - COVID screening: Per assessment on 06/15: Covid positive 05/24- completed isolation. Pt remained asymptomatic. [place] [place]. No current COVID-19 related symptoms. Travel screen- returned from travel to [place] 06/14 (via plane). Patient vaccinated. At surgeon discretion if preop Covid testing being done. - S/P Right SHALA (05/06/20): SAB at L3/4 (x3 attempts) at [facility]. No issues noted per post-op anesthesia progress note. Chart Review Chart Review: Patient seen in Pre Admission Testing Teaching & Discussion Pre-Anesthesia Teaching/Discussion Notes: Instructed NPO after midnight before surgery,except medications with 15 cc of water. Medication instructions provided according to the PAT guidelines. History Surgery Operation Date: 06/26/22 07:45 Proposed Procedures p L5-S1 Decompression and Fusion, L2-L5 Hardware Removal, Spinal Cord Monitoring - Juve Gipson, Height/Weight Height: 5 ft 10.5 in Weight: 84.2 kg Allergies Allergy/AdvReac Type Severity Reaction Status Date / Time cat dander Allergy Mild Sneezing Verified 06/03/22 09:46 dog dander Allergy Mild Sneezing Verified 06/03/22 09:46 Iodinated Contrast Media AdvReac Mild Nausea Verified 06/09/22 14:22 Medications Home Medications Medication Instructions Recorded Confirmed Last Taken albuterol sulfate 90 mcg/actuation 2 puff inhalation Q6H PRN 10/13/21 06/03/22 Unknown aerosol inhaler (Proventil HFA) shortness of breath or wheezing #18 grams budesonide-formoterol HFA 80 2 puff inhalation BID #10.2 grams 10/13/21 06/03/22 Unknown mcg-4.5 mcg/actuation aerosol inhaler (Symbicort) fluticasone propionate 50 2 spray intranasal DAILY #16 grams 10/13/21 06/03/22 11/04/21 mcg/actuation nasal spray,suspension montelukast 10 mg tablet 10 mg PO QAM #90 tabs 10/13/21 06/03/22 11/06/21 sertraline 50 mg tablet 50 mg PO PM #90 tabs 10/13/21 06/03/22 11/05/21 simvastatin 40 mg tablet 40 mg PO PM #90 tabs 10/13/21 06/03/22 11/05/21 meloxicam 7.5 mg tablet 7.5 mg PO DAILY PRN Pain 10/31/21 06/03/22 10/31/21 Past Medical History Medical History Allergic rhinitis Allergy-induced asthma Anxiety History of COVID-19 2019 > Mild symptoms/resolved 01/2022 > Mild symptoms/resolved Hyperlipidemia Osteoarthritis Exercise / Class Metabolic Activity II 4-5 Yardwork/Stairs/Walk up hill Past Family History Family History Father Coronary heart disease Heart disease Hyperlipidemia Myocardial infarction Mother Muscular dystrophy Irritable bowel Son Muscular dystrophy Other No family history of adverse response to anesthesia Denies family history of Ovarian cancer Prostate cancer Breast cancer Colorectal cancer Past Surgical History Surgical History History of arthroscopy Right knee History of colonoscopy History of endoscopic sinus surgery History of laminectomy lumbar x2 History of tonsillectomy and adenoidectomy History of total hip arthroplasty R/L Right SHALA (05/06/20): SAB at L3/4 (x3 attempts) at [facility]. No issues noted per post-op anesthesia progress note. [place] teeth removed Past Anesthesia History No Hx of Anesthesia Complications and No Family Hx of Anesthesia Complications History of PONV No Hx of PONV and No Hx of Motion Sickness Social History Smoking Status: Never smoker tobacco type: smokeless tobacco Do You Dip or Chew Tobacco: Yes (Advised none DOS (3 cans/week)) Hx Alcohol Use: Yes Alcohol type: beer alcohol intake frequency: a few times a week Hx Substance Use: No substance use type: does not use Review of Systems Patient denies chest pain, shortness of breath, dyspnea on exertion, fever, chills, cough, wheezing, palpitations. Physical Exam Vital Signs VITALS BP 134/82 P 71 TEMP SP02 96%RA RESP 16 PHYSICAL Full cervical extension range of motion. Full TMJ range of motion. TMD 3 finger breaths Mallampati Score 3 Dentition: intact Lungs: clear throughout to auscultation Cardiac: regular rate and rhythm, no murmurs noted Spine: normal Carotid arteries: negative bruit Extremities: no edema Lab Results Anesthesia Preop Results Results Anesthesia Widget: WBC 5.48 K/ul (4.8-10.8) 06/15/22 Hgb 13.7 g/dl (14.0-18.0) L 06/15/22 Hct 40.9 % (40.1-51.0) 06/15/22 Plt 226 K/uL (130-400) 06/15/22 Na 138 mmol/L (136-145) 06/15/22 K 4.4 mmol/L (3.5-5.1) 06/15/22 Cl 105 mmol/L (98-107) 06/15/22 CO2 27 mmol/L (21-32) 06/15/22 BUN 18 mg/dl (6-23) 06/15/22 Creat 1.05 mg/dl (0.6-1.4) 06/15/22 Glucose Level 98 mg/dl (70-99(Fasting)) 06/15/22 PT 10.6 Seconds (9.0-12.0) 06/15/22 PTT 29.1 Seconds (21.0-31.0) 06/15/22 INR 1.0 (0.9-1.1) 06/15/22 Blood Type A Positive 06/15/22 Antibody Screen NEGATIVE 06/15/22 Testing Electrocardiogram Date: 06/15/22 Findings: + NSR @ (68) Chest X-Ray Date: 06/15/22 Findings: + NAD Stress Test Date: 10/13/15 Type: exercise Negative exercise stress echo/ECG for ischemia at greater than 100% MPHR. Rest EF 60%. Mild MR. Mild TR. 13.7 METS. COVID-19 Risk Screen Screening Information COVID-19 Screen Date: 06/15/22 Exposure 21 Days Family/Household +COVID Last 21 Days: No Exposure 10 Days Any COVID Exposure Last 10 Days: No Symptoms Last 10 Days Experienced COVID Sx Last 10 Days: No + COVID 0-90 Days COVID + in Last 0-90 Days: No
[~2022-06-26 08:21] MED LIST changes: -BUPIVACAINE 0.5 % 5 MG/1 ML PF 10ML VIAL ONE; -CEFAZOLIN 2000MG 2,000 MG/15 ML SYR IV SCH; -FAMOTIDINE 20 MG TAB PO SCH; +LR 15ML/HR IV SCH; -LR 500ML BOLUS, THEN 15ML/HR IV SCH; -METOCLOPRAMIDE HCL 10 MG TABLET PO SCH; -ROPIVACAINE 0.5% HCL/PF 150 MG, BUPIVACAINE 0.5% MPF 30 ML, EPINEPHrine 30MG/30ML (OR U... INSTIL SCH; -TRANEXAMIC ACID 1,000 MG **IV Intra-op IV SCH; -TRANEXAMIC ACID 1,000 MG **IV Pre-op IV SCH; +ceFAZolin 2000MG 2,000 MG/15 ML SYR IV SCH; -dexAMETHasone 4 MG TAB PO SCH
[2022-06-26] MEDS ORDERED: fentaNYL citrate 100 MCG/2 ML VIAL ONE (08:39)
[2022-06-26] MEDS ORDERED: MIDAZOLAM HCL 1 MG/ML 2ML VIAL ONE (08:39)
--- NOTE | 2022-06-26 09:00 | History & Physical Report ---
Date of Service June 26, 2022 Assessment & Plan (1) Lumbar spinal stenosis: Plan: L5-S1 decompression and fusion, L2-L5 hardware removal History of Present Illness Chief Complaint: Back and leg pain Primary Care Provider: CRISSY Harry This is a 66-year-old male who presents with chronic persistent back and leg pain after failing course of nonoperative care is here for surgical invention. Allergies Allergy/AdvReac Type Severity Reaction Status Date / Time cat dander Allergy Mild Sneezing Verified 06/26/22 08:51 dog dander Allergy Mild Sneezing Verified 06/26/22 08:51 Iodinated Contrast Media AdvReac Mild Nausea Verified 06/26/22 08:51 Home Medications Medication Instructions Recorded Confirmed Type albuterol sulfate 90 mcg/actuation 2 puff inhalation Q6H PRN 10/13/21 06/26/22 Rx aerosol inhaler (Proventil HFA) shortness of breath or wheezing #18 grams simvastatin 40 mg tablet 40 mg PO PM #90 tabs 10/13/21 06/26/22 Rx meloxicam 7.5 mg tablet (Mobic) 7.5 mg PO DAILY PRN Pain 10/31/21 06/26/22 History montelukast 10 mg tablet 10 mg PO QAM 06/26/22 06/26/22 History (Singulair) sertraline 50 mg tablet (Zoloft) 50 mg PO PM 06/26/22 06/26/22 History Past Med/Surg History Medical History Allergic rhinitis Allergy-induced asthma Anxiety History of COVID-19 2019 > Mild symptoms/resolved 01/2022 > Mild symptoms/resolved Hyperlipidemia Osteoarthritis Surgical History History of arthroscopy Right knee History of colonoscopy History of endoscopic sinus surgery History of laminectomy lumbar x2 History of tonsillectomy and adenoidectomy History of total hip arthroplasty R/L Right SHALA (05/06/20): SAB at L3/4 (x3 attempts) at [facility]. No issues noted per post-op anesthesia progress note. [place] teeth removed Family History Father Coronary heart disease Heart disease Hyperlipidemia Myocardial infarction Mother Muscular dystrophy Irritable bowel Son Muscular dystrophy Other No family history of adverse response to anesthesia Denies family history of Ovarian cancer Prostate cancer Breast cancer Colorectal cancer Social History (Updated 11/05/21 @ 08:30 by Filomena Mcdonald LPN) Smoking Status: Never smoker Tobacco Type: Smokeless Tobacco (Dip or Chew) Age Started Using Tobacco: 20; Age Quit Using Tobacco: 27; packs per day: 0.5; Second Hand Exposure: No; Do You Dip or Chew Tobacco: Yes (Advised none DOS (3 cans/week)); Hx Alcohol Use: Yes Alcohol type: beer Hx Substance Use: No Preferred Language: Lithuanian Communication Ability: Effective Visual Impairment: No Limitations Hearing Ability: Normal Machine Puller Over Required: No Beliefs That Will Affect Care: None marital status: Current Living Situation: Spouse current occupational status: retired Feels Safe at Home: Yes Safety Concerns: Feels Safe At This Time Childhood Exposure to Second-Hand Smoke: No Dental Care, Regularly: Yes Physical Activity Frequency: 3-4 Times per Week Seatbelt Use: always Sunscreen Use: Yes Assistive Devices: Glasses Physical Exam Physical Exam: Patient is alert and oriented Heart regular rhythm Lungs clear
--- NOTE | 2022-06-26 09:00 | History & Physical Bridge Note ---
Date of Service June 26, 2022 History & Physical Bridge Note I have examined the patient, reviewed the History & Physical and in the interval since the performance of the History & Physical I have noted the following changes of clinical significance: no changes noted
[2022-06-26] MEDS ORDERED: ATROPINE SULFATE 0.1 MG/ML 10ML SYR IV PRN (09:03)
[2022-06-26] MEDS ORDERED: ONDANSETRON INJ 2 MG/ML 2 ML VIAL IV PRN ×2 (09:03→13:01)
[2022-06-26] MEDS ORDERED: HYDROmorphone INJ 2 MG/ML SYR/VIAL IV PRN (09:03)
[2022-06-26] MEDS ORDERED: ePHEDrine sulfate 50 MG/ML AMP IV PRN (09:03)
[2022-06-26] MEDS ORDERED: fentaNYL citrate 100 MCG/2 ML VIAL IV PRN (09:03)
[2022-06-26] MEDS ORDERED: ceFAZolin 330 MG/ML 1 GM VIAL ONE (09:20)
[2022-06-26] MEDS ORDERED: BUPIVACAINE/EPINEPHRINE 0.25% 1:200,000 30 ML VIAL ONE (09:20)
[2022-06-26] MEDS ORDERED: HYDROmorphone INJ 2 MG/ML SYR/VIAL ONE (09:46)
[2022-06-26] MEDS ORDERED: FLOSEAL HEMOSTATIC MATRIX 10ML TOP ONE (09:53)
[2022-06-26] MEDS ORDERED: PROPOFOL IV EMULSION 10 MG/ML 20 ML VIAL IV ONE (09:59)
[2022-06-26] MEDS ORDERED: LIDOCAINE 2% MPF LOCAL 5 ML VIAL INFIL ONE (09:59)
[2022-06-26] MEDS ORDERED: ROCURONIUM BROMIDE 10 MG/ML 5 ML VIAL IV ONE (09:59)
[2022-06-26] MEDS ORDERED: ePHEDrine sulfate 50 MG/ML SYR ONE (09:59)
[2022-06-26] MEDS ORDERED: NEOSTIGMINE METHYLSULFATE 1 MG/ML 10ML VIAL ONE (09:59)
[2022-06-26] MEDS ORDERED: ONDANSETRON INJ 2 MG/ML 2 ML VIAL ONE (09:59)
[2022-06-26] MEDS ORDERED: LARYING-O-JET KIT (LTA) ONE (09:59)
[2022-06-26] MEDS ORDERED: GLYCOPYRROLATE 0.2 MG/ML VIAL ONE (09:59)
[2022-06-26] MEDS ORDERED: DEXAMETHASONE SOD INJ 4 MG/ML VIAL ONE (09:59)
--- NOTE | 2022-06-26 11:39 | Operative Report ---
Post Operative Report Pre & Post Diagnosis Operation Date: 06/26/22 09:45 Pre-Op Diagnosis: Spinal Stenosis, Lumbar Region with Neurogenic Cla Post-Op Diagnosis: Spinal Stenosis, Lumbar Region with Neurogenic Cla I identified the patient and participated in the time-out.: Yes Procedure Operation Date: 06/26/22 09:45 Actual Procedures #1 removal of segmental posterior instrumentation L2-L5. #2 exploration of fusion L2-5. #3 lumbar decompression bilateral facetectomies and foraminotomies L5-S1. #4 posterior spinal fusion L5-S1. #5 placement of posterior instrumentation L5-S1. #6 interbody fusion L5-S1. #7 placement of Spira 14 x 26 mm cage at L5-S1. #8 placement locally harvested morselized autograft in the posterior gutters. #9 placement of I factor model V toss interbody space and posterior gutters. Surgeon Juve Gipson DO [employer] Saroj Perez Estimated Blood Loss 100 Findings Consistent with Post-Op Diagnosis Specimens None Indications This is a 67-year-old male known to me the presents above-mentioned diagnosis after failed course of nonoperative care is here for surgical invention. Description of Procedure Patient was met with identified informed consent obtained. Patient was then taken to the operative suite underwent a patient placed in a prone position the [place] table top dose and frame. All bony prominences well-padded eyes inspected to ensure no external pressure placed upon the bed this point the lumbar spine was prepped and draped no sterile fashion. Sharp dissection with the assistance of Bovie cautery was performed down to and exposing the instrumentation at L2-L5 as well as the lamina of L5 and the sacral ala bilaterally. Then proceeded to move the hardware bilaterally explore the fusion mass noting it to be mature and intact. Then formed a complete laminectomy of L5 including bilateral medial facetectomies and foraminotomies addressing severe spinal stenosis. Pedicle screws were then placed in L5 and S1 levels bilaterally with assistance of fluoroscopy the properly sized igor placed. By way of a transforaminal approach and left complete discectomy of L5-S1 was performed endplates curetted to subcortical bleeding bone and a 14 x 26 mm spiral cage filled with I factor tapped in position. The rods were then locked into final position bilaterally. The transverse processes of L5 and the sacral ala burred to subcortical bleeding bone. I factor model V toss and locally harvested morselized autograft was placed in the posterior gutters. 15 round NAEEM drain inserted. Incision was then closed with 1 Vicryl the fascia 2-0 Vicryl subcutaneously and 4 Monocryl for final skin closure. Steri-Strip sterile d ressings placed. Patient waken taken PACU stable condition. Please note spinal cord monitoring was utilized at the procedure and no changes noted. Lastly Saroj Perez was present at the entire surgeon while the patient positioning complex portions of the surgery and final skin closure. I attest to the content of the Intraoperative Record and any orders documented therein. Any exceptions are noted below.
--- NOTE | 2022-06-26 12:45 | Anesthesiology Progress Note ---
Date of Service June 26, 2022 Anesthesia Post Procedure Vital Signs Vital Signs: Temp Pulse Pulse Resp BP Pulse Ox O2 Del Method 06/26/22 12:35 87 16 158/84 H 95 Room Air 06/26/22 12:25 97 H 16 145/65 H 99 Oxymask 06/26/22 12:15 85 16 175/81 H 98 Oxymask 06/26/22 12:09 96.8 F L 93 H 16 170/85 H 97 Oxymask 06/26/22 08:52 98.1 F 60 16 137/81 96 Room Air O2 Flow Rate 06/26/22 12:35 06/26/22 12:25 5 06/26/22 12:15 5 06/26/22 12:09 10 06/26/22 08:52 Pain Intensity Back: Pain Intensity: 5 Transfer of Care Handoff Completed per policy Notes Mental Status: alert / awake / arousable and participated in evaluation Patient Amnestic to Procedure: Yes Nausea / Vomiting: adequately controlled Pain: adequately controlled Airway Patency, RR, SpO2: stable & adequate BP & HR: stable & adequate Hydration State: stable & adequate Anesthetic Complications: no major complications apparent and Pt Satisfied with anesthetic care
[2022-06-26] MEDS ORDERED: LORazepam 0.5 MG TAB PO PRN (13:01)
[2022-06-26] MEDS ORDERED: NALOXONE HCL 0.4 MG/1 ML VIAL/CARP IV PRN (13:01)
[2022-06-26] MEDS ORDERED: hydrOXYzine HCl 25 MG TAB PO PRN (13:01)
[2022-06-26] MEDS ORDERED: traMADol HCL 50 MG TABLET PO PRN (13:01)
[2022-06-26] MEDS ORDERED: ALUMINUM/MAGNESIUM SUSP 30 ML UDC PO PRN (13:01)
[2022-06-26] MEDS ORDERED: SOD PHOSPHATE/SOD BIPHOSPHATE ENEMA 132 ML BTL PR PRN (13:01)
[2022-06-26] MEDS ORDERED: diphenhydrAMINE Capsule 25 MG CAP PO PRN (13:01)
[2022-06-26] MEDS ORDERED: ALBUTEROL HFA 8 GM INHALER INH PRN (13:01)
[2022-06-26] MEDS ORDERED: MAGNESIUM HYDROXIDE SUSP 30 ML UDC PO PRN (13:01)
[2022-06-26] MEDS ORDERED: HYDROmorphone INJ 0.5 MG/0.5 ML SYR IV PRN (13:01)
[2022-06-26] MEDS ORDERED: PROMETHAZINE HCL 12.5 MG in SODIUM CHLORIDE 0.9% 50 ML IV PRN (13:01)
[2022-06-26] MEDS ORDERED: FAMOTIDINE 20 MG TAB PO PRN (13:01)
[2022-06-26] MEDS ORDERED: HYDROmorphone INJ 1 MG/ML SYRINGE IV PRN (13:01)
[2022-06-26] MEDS ORDERED: LORazepam 0.5 MG in SYRINGE 0 ML IV PRN (13:01)
[2022-06-26] MEDS ORDERED: bisacodyL 10 MG SUPP PR PRN (13:01)
[2022-06-26] MEDS ORDERED: METOCLOPRAMIDE HCL INJ 5 MG/ML 2 ML VIAL IV PRN (13:01)
[2022-06-26] MEDS ORDERED: ACETAMINOPHEN 500 MG TAB PO PRN (13:01)
[2022-06-26] MEDS ORDERED: ONDANSETRON 4 MG OD TAB PO PRN (13:01)
[2022-06-26] MEDS ORDERED: ACETAMINOPHEN 1,000 MG/100 ML VIAL IV PRN (13:01)
--- NOTE | 2022-06-26 13:02 | Fluoroscopy Report ---
FL lumbar spine 2-3V CLINICAL HISTORY: L5-S1 DECOMPRESSION COMPARISON STUDY: Lumbar spine radiographs February 13, 2013. FLUOROSCOPY TIME: 20 seconds. FLUOROSCOPIC IMAGES: 2 FINDINGS: Interval L5-S1 discectomy, posterior decompression and bilateral pedicle screw fusion is no tre. Previous lumbar spine hardware was removed. Previous multilevel discectomies are noted. IMPRESSION: Fluoroscopy provided during L5-S1 discectomy, posterior decompression and bilateral pedi vielka screw fusion. ACT 112: Negative or not required by law. Electronically signed by: Stephan Tsai M.D. 06/26/2022 1:01 PM
[2022-06-26] MEDS: LACTATED RINGER'S 1,000 ML IV SCH (14:34)
--- NOTE | 2022-06-26 15:19 | Hospitalist Consultation ---
Date of Consultation June 26, 2022 Assessment & Plan (1) Lumbar spinal stenosis: - POD#0, EBL 100 cc. 1 NAEEM drain placed. Patient without any complaints at this time. - Pain/ABX/IVF/diet/drain management/transfusion needs/activity per primary team - Rescue Narcan ordered for over sedation PRN - VTE prophylaxis per primary service- SCDs in place - CBC and BMP in AM. - Baseline renal function: Creatinine 1.05, GFR 74.1 on 06/15/2022. - Baseline Hgb: 13.7 on 06/15/2022 (2) Hypercholesteremia: - Continue simvastatin 40 mg at night. (3) Anxiety: - Continue Zoloft 50 mg at night. (4) Allergy-induced asthma: - Continue Singulair daily and albuterol inhaler as needed. Plan - Admitted to [facility] per primary team. - SCDs ordered for VTE PPx per primary team. - Full Code. Thank you for involving us in the care of Pérez Purcell. Please do not hesitate to call with questions or concerns. At this time medicine service will sign off. Supervising Physician Co-Signing Physician Notes I personally saw and examined the patient. I verified all peralta points and agree with Purvi Jones PA-C with the following exceptions and/or additions: 67 year old male POD #0 revision posterior lumbar spinal fusion. Discussed patients medical conditions and medications. Post op surgery course appears to be going well. Given minimal medical management required and no complications anticipated medical team will sign off at this time, History of Present Illness Reason for Consultation: Postop medication management Requesting Physician: Juve Gipson DO Attending Physician: Juve Gipson DO History of Present Illness Pérez Michelle is a 67-year-old male with a past medical history significant for hyperlipidemia, anxiety, allergic rhinitis, osteoarthritis, and asthma who was admitted today, 06/26 for L5/S1 decompression and fusion and L2-L5 hardware removal with Dr. Gipson. Hospitalist group was consulted for post-operative medication management. Today, he is POD#0 and feels well. Denies fever/chills, weakness, chest pain, palpitations, shortness of breath, cough, orthopnea, abdominal pain, nausea, vomiting. Pain is minimal and he is moving all extremities well without any numbness, tingling, or weakness. Allergies Allergy/AdvReac Type Severity Reaction Status Date / Time cat dander Allergy Mild Sneezing Verified 06/26/22 08:51 dog dander Allergy Mild Sneezing Verified 06/26/22 08:51 Iodinated Contrast Media AdvReac Mild Nausea Verified 06/26/22 08:51 Home Medications Medication Instructions Recorded Confirmed Type albuterol sulfate 90 mcg/actuation 2 puff inhalation Q6H PRN 10/13/21 06/26/22 Rx aerosol inhaler (Proventil HFA) shortness of breath or wheezing #18 grams simvastatin 40 mg tablet 40 mg PO PM #90 tabs 10/13/21 06/26/22 Rx montelukast 10 mg tablet 10 mg PO QAM 06/26/22 06/26/22 History (Singulair) oxycodone 5 mg tablet 5 mg PO Q6H PRN pain, severe #30 06/26/22 Rx tabs tramadol 50 mg tablet 50 mg PO Q6H PRN pain, moderate 06/26/22 Rx #30 tabs sertraline 50 mg tablet (Zoloft) 50 mg PO PM #90 tabs 07/01/22 Rx Patient History Medical History (Updated 06/26/22 @ 15:16 by Purvi Jones PA-C) Allergic rhinitis Allergy-induced asthma Anxiety History of COVID-19 2019 > Mild symptoms/resolved 01/2022 > Mild symptoms/resolved Hyperlipidemia Osteoarthritis Surgical History History of arthroscopy Right knee History of colonoscopy History of endoscopic sinus surgery History of laminectomy lumbar x2 History of tonsillectomy and adenoidectomy History of total hip arthroplasty R/L Right SHALA (05/06/20): SAB at L3/4 (x3 attempts) at [facility]. No issues noted per post-op anesthesia progress note. [place] teeth removed Family History Father Coronary heart disease Heart disease Hyperlipidemia Myocardial infarction Mother Muscular dystrophy Irritable bowel Son Muscular dystrophy Other No family history of adverse response to anesthesia Denies family history of Ovarian cancer Prostate cancer Breast cancer Colorectal cancer Social History Smoking Status: Never smoker Tobacco Type: Smokeless Tobacco (Dip or Chew) Age Started Using Tobacco: 20; Age Quit Using Tobacco: 27; packs per day: 0.5; Second Hand Exposure: No; Do You Dip or Chew Tobacco: Yes (Advised none DOS (3 cans/week)); Hx Alcohol Use: Yes Alcohol type: beer Hx Substance Use: No Preferred Language: Greenlandic Communication Ability: Effective Visual Impairment: No Limitations Hearing Ability: Normal 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 Beliefs That Will Affect Care: None marital status: Current Living Situation: Spouse current occupational status: retired How many Children do You have: 1 Feels Safe at Home: Yes Safety Concerns: Feels Safe At This Time Childhood Exposure to Second-Hand Smoke: No Dental Care, Regularly: Yes Physical Activity Frequency: 3-4 Times per Week Seatbelt Use: always Sunscreen Use: Yes Assistive Devices: None Review of Systems Review of Systems: Constitutional: No fever/chills, weakness, fatigue, myalgias, anorexia, night sweats Eyes: No diplopia, no worsening or blurred vision ENT: normal hearing, no trouble swallowing Respiratory: No cough, sputum, dyspnea at rest or on exertion Cardiovascular: No chest pain, tightness or palpitations Abdomen: No pain, nausea, vomiting, diarrhea or constipation : Denies dysuria, hematuria, increased urgency/frequency, urinary retention Musculoskeletal: No joint pain, calf pain, swelling Neurologic: No weakness, numbness/tingling, or balance problems Psychiatric: No anxiety or depression Skin: No rash or itch Physical Exam Physical Exam: General: awake, alert, no apparent distress Head: Normocephalic, atraumatic ENT: PERRL, EOMI, no pharyngeal exudate, mucous membranes moist Chest: Clear to auscultation, on room air, no adventitious breath sounds Cardiac: Regular rate and rhythm, no murmur, no JVD, normal peripheral pulses, good capillary refill Abdominal: NABS x 4 quadrants, soft, nontender to palpation, no rebound, guarding or tenderness Extremities: Normal inspection, no peripheral edema or erythema, calfs nontender to palpation Psych: Normal mood and affect Neuro: AAO x 3, strength intact bilaterally and rated 5/5, no motor deficits, speech is clear, no peripheral sensory deficits Skin: no rash or erythema Results & Data Results & Data ([facility]) Vital Signs (Past 12 Hours) Vital Signs Temp Pulse Pulse Resp BP Pulse Ox O2 Del Method 06/26/22 15:10 36.6 C 105 H 16 119/63 93 Room Air 06/26/22 14:34 69 18 125/76 91 Room Air 06/26/22 13:30 78 16 127/73 98 Room Air 06/26/22 13:15 80 16 119/73 98 Room Air 06/26/22 13:00 92 H 16 130/73 94 Room Air 06/26/22 12:45 36.4 C L 80 16 109/62 94 Room Air 06/26/22 12:35 87 16 158/84 H 95 Room Air 06/26/22 12:25 97 H 16 145/65 H 99 Oxymask 06/26/22 12:15 85 16 175/81 H 98 Oxymask 06/26/22 12:09 36.0 C L 93 H 16 170/85 H 97 Oxymask 06/26/22 08:52 36.7 C 60 16 137/81 96 Room Air O2 Flow Rate 06/26/22 15:10 06/26/22 14:34 06/26/22 13:30 06/26/22 13:15 06/26/22 13:00 06/26/22 12:45 06/26/22 12:35 06/26/22 12:25 5 06/26/22 12:15 5 06/26/22 12:09 10 06/26/22 08:52 Diagnostic Findings Lumbar Spine X-Ray 06/26/22 09:45 [place] lumbar spine 2-3V CLINICAL HISTORY: L5-S1 DECOMPRESSION COMPARISON STUDY: Lumbar spine radiographs February 13, 2013. FLUOROSCOPY TIME: 20 seconds. FLUOROSCOPIC IMAGES: 2 FINDINGS: Interval L5-S1 discectomy, posterior decompression and bilateral ped icle screw fusion is noted. Previous lumbar spine hardware was removed. Previous multilevel discectomies are noted. IMPRESSION: Fluoroscopy provided during L5-S1 discectomy, posterior decompression and bilateral pedicle screw fusion. ACT 112: Negative or not required by law. Electronically signed by: Stephan Tsai M.D. 06/26/2022 1:01 PM PG Care Time/CCT Total # of Minutes Spent Total Time Spent with Patient: Total time spent is greater than 50% in coordination of care (as documented) at patient's floor/unit and/or counseling patient: Coding Level of Care Code 81322 Inpt Consult Level 3 Diagnoses Lumbar spinal stenosis M48.061 Hypercholesteremia E78.00 Anxiety F41.9 Allergy-induced asthma J45.909
[2022-06-26] MEDS: ceFAZolin 2000MG 2,000 MG/15 ML SYR IV SCH (17:41)
[2022-06-26] MEDS: SIMVASTATIN 40 MG TAB PO SCH (20:23)
[2022-06-26] MEDS: SERTRALINE HCL 50 MG TABLET PO SCH (20:23)
[2022-06-26] MEDS: DOCUSATE SODIUM/SENNA 50/8.6MG TAB PO SCH (20:23)
[2022-06-27] MEDS: LACTATED RINGER'S 1,000 ML IV SCH ×2 (00:06→10:54)
[2022-06-27] MEDS: ceFAZolin 2000MG 2,000 MG/15 ML SYR IV SCH (02:16)
[2022-06-27] MEDS: POLYETHYLENE (MIRALAX) 17 GM PACK PO SCH ×3 (05:36→18:43)
[2022-06-27] MEDS: oxyCODONE HCL IR 5 MG TAB (IMMEDIATE RELEASE) PO PRN (06:46)
[2022-06-27 07:23] LABS: Basophils # (auto) 0.03 K/uL (0-0.2); Basophils % (auto) 0.3 %; Eosinophils # (auto) 0.02 K/uL (0-0.50); Eosinophils % (auto) 0.2 %; Hematocrit (blood only) 33.4 % (40.1-51.0); Hemoglobin 11.3 g/dl (14.0-18.0); Immature Granulocytes # (auto) 0.03 K/uL (0.00-0.02); Immature Granulocytes % (auto) 0.3 %; Lymphocytes # (auto) 1.53 K/uL (1.2-3.4); Lymphocytes % (auto) 15.8 %; Mean Corpuscular Hemoglobin 32.1 pg (25.0-34.0); Mean Corpuscular Hgb Conc 33.8 g/dL (32.0-36.0); Mean Corpuscular Volume 94.9 fL (80.0-100.0); Mean Platelet Volume 9.3 fL (9.4-12.4); Monocytes # (auto) 0.93 K/uL (0.24-0.82); Monocytes % (auto) 9.6 %; Neutrophils # (auto) 7.14 K/uL (1.4-6.5); Neutrophils % (auto) 73.8 %; Platelet Count 214 K/uL (130-400); RDW Coefficient of Variation 12.7 % (11.5-14.5); RDW Standard Deviation 43.8 fL (36.4-46.3); Red Blood Count 3.52 M/uL (4.63-6.08); White Blood Count 9.68 K/ul (4.8-10.8)
--- NOTE | 2022-06-27 07:37 | Orthopedic Progress Note ---
Date of Service June 27, 2022 Assessment & Plan (1) Lumbar spinal stenosis: Plan: Patient is doing well postop day #1. Continue with ambulation gait training. Continue with GI DVT prophylaxis as well as pain control. We will discontinue his Palmer catheter. We will see him tomorrow morning to see how he is coming along likely be ready for discharge to home on Wednesday. Admission and Anticipated Discharge Date Admission Date: June 26, 2022 Subjective Patient is seen bedside in room 360. He is doing well this morning. He has jena e pain in the back. He is really not having much in way of radicular complaints. He did get some rest last night. His pain is well controlled. He has not yet had a bowel movement. He denies any other numbness, tingling, paresthesias Physical Exam Physical Exam: On exam he appears to be comfortable. His abdomen soft nontender his calves are supple nontender. Strength and sensation grossly intact his gait was not observed. Results & Data ([facility]) Vital Signs (Past 12 Hours) Vital Signs Temp Pulse Resp BP Pulse Ox O2 Del Method 06/27/22 01:57 37.0 C 89 16 118/67 93 Room Air 06/26/22 22:14 37.0 C 71 16 116/69 93 Room Air
[2022-06-27 08:21] LABS: BUN Creatinine Ratio 17.2 (10-20); Calcium 8.5 mg/dl (8.5-10.1); Est GFR (African American) 92.2 ml/min; Est GFR (Non-African American) 79.6 ml/min; Potassium 3.9 mmol/L (3.5-5.1)
[2022-06-27] MEDS: dexAMETHasone 6 MG in SYRINGE 0 ML IV SCH (09:12)
[2022-06-27] MEDS: MONTELUKAST SODIUM 10 MG TABLET PO SCH (09:12)
[2022-06-27] MEDS: SIMVASTATIN 40 MG TAB PO SCH (19:13)
[2022-06-27] MEDS: SERTRALINE HCL 50 MG TABLET PO SCH (19:13)
[2022-06-27] MEDS: DOCUSATE SODIUM/SENNA 50/8.6MG TAB PO SCH (19:13)
[2022-06-28] MEDS: POLYETHYLENE (MIRALAX) 17 GM PACK PO SCH ×2 (00:21→05:42)
[2022-06-28] MEDS: oxyCODONE HCL IR 5 MG TAB (IMMEDIATE RELEASE) PO PRN ×2 (00:21→08:18)
--- NOTE | 2022-06-28 08:04 | Discharge Summary ---
Date of Service June 28, 2022 Discharge Data Consultations 06/26/22 13:01 Consult Hospitalist Routine Procedures Performed Operation Date: 06/26/22 09:45 Actual Procedures p L5-S1 Decompression and Fusion, Spinal Cord Monitoring(Not Applicable) - Juve Gipson DO s L2-L5 Hardware Removal, (Not Applicable) - Juve Gipson DO Hospital Course (1) Lumbar spinal stenosis: Patient is a pleasant 67-year-old male with history physical examination review of images consist of the above-mentioned diagnosis. This reason is brought to the operating room and undergone a removal of hardware from L2-L5 lumbar decompression L5-S1 in conjunction with an instrumented fusion. This was performed by Dr. Gipson under general anesthesia. The patient left the operating with a NAEEM drain Palmer in place and transferred to PACU in stable condition. Is then transferred to the orthopedic floor. He was seen by physical therapy postop day 1 for ambulation and gait training. Today on postop day #2 has been passing gas ambulating independently and his pain is well controlled. He was deemed safe for home discharge. His discharge instructions to change his dressing once daily till there is no drainage then he may begin showering. He should not drive until he sees us in the office in approximately 2 weeks. Nothing heavier than 5 to 7 pounds and should not perform any full bending at the waist. His follow-up care is with our office in 2 weeks or sooner if he develops any increased pain drainage from the incision fevers or chills.
[2022-06-28] MEDS: MONTELUKAST SODIUM 10 MG TABLET PO SCH (08:18)
[2022-06-28] MEDS: dexAMETHasone 6 MG in SYRINGE 0 ML IV SCH (08:19)
== END 2022-06-28 11:30 | disposition home or self-care (01) | DRG 455 ==
LOC: ASU 08:21 → PACUINP 11:43 → 3W 14:16